=== PATIENT | male | born 1980 | race Caucasian/White ===

== ENCOUNTER 2019-03-11 10:44 | Emergency (ER) | payer OTHER, BC, SELFPAY ==
[2019-03-11 10:48] VITALS: BP 165/89; PULSE 110; RESP 16; TEMP 36.6; O2SAT 97; BMI 28.2
--- NOTE | 2019-03-11 11:50 | ED.DCSUM_ITS ---
History of Present Illness Chief Complaint: Back Onset: Today Current Severity: Moderate Maximum Severity: Moderate Narrative: Patient has chronic recurrent back pain. He presents today with back pain after bending over. He does have some radiation into his buttocks. He is virtually pain-free when he stands up however as soon as he starts to move he is in what he calls excruciating pain. He denies any bowel or bladder compromise, he has no radiation to his feet. Past Medical History - Allergies and Home Meds Allergies/Adverse Reactions: Allergies No Known Allergies Allergy (Verified 03/11/19 10:50) Primary Care Physician: Care Physician,No Primary [Primary Care Provider] - Past Medical History: None Surgical History: no surgical history Smoking Status: Former smoker Review of Systems All systems negative except as indicated General: Denies: Fever Cardiovascular: Denies: Chest pain Respiratory: Denies: Dyspnea Gastrointestinal: Denies: Abdominal pain, Nausea Musculoskeletal: Reports: Myalgias, Back pain Skin: Denies: Rash, Wounds Neurological: Denies: Headache, Weakness, Numbness Physical Exam Vital Signs/Narrative: Vital Signs Temp Pulse Resp BP Pulse Ox 03/11/19 10:48 97.8 F 110 H 16 165/89 H 97 General: Well nourished, Well developed Cardiovascular: Regular rate, Regular rhythm Respiratory: No distress, CTA bilaterally Abdomen: Soft, Nontender, No masses Back: - - There is midline and paraspinal tenderness in the lumbar spine region Neurological: - - Patient has normal strength sensation. He has no neurological compromise. Diagnostic/Tx/Re-eval - Medical Decision Making Patient has a lumbar strain however I did tell him that there is a possibility of a disc herniation. Regardless at this time he has no signs or symptoms of cauda equina. I will treat him symptomatically. He will need to follow-up with [facility]. If he worsens, if he has bowel or bladder compromise, if he has paresthesias or weakness he needs to return right away he understands this. ED Disposition - Plan for ED Patient: Disposition: Home or Assisted Living Instructions: BACK PAIN (Acute or Chronic) Prescriptions: Naproxen [Naprosyn] 500 mg PO BID PRN #20 tab Prescription Printed Hydrocodone Bitart/Apap 5-325 [[place] 5MG-325MG] 1 tab PO Q4H PRN PRN 2 Days #10 tab PRN Reason: Pain Prescription Printed Tizanidine HCl 4 mg PO TID #20 tab Prescription Printed Referrals: [facility] [GROUP OF PHYSICIANS] -
[2019-03-11] MEDS: Orphenadrine 60 MG/2 ML Ampul IM (12:37)
[2019-03-11] MEDS: HYDROmorphone 1 MG/ML Syringe IM (13:18)
[2019-03-11 13:48] VITALS: PULSE 89; RESP 16; O2SAT 97
== END 2019-03-11 13:50 | disposition home or self-care (01) ==
PROVIDERS: Emergency Provider Emergency Medicine
DX: S39.012A Strain of muscle, fascia and tendon of lower back, initial encounter (principal); X50.1XXA Overexertion from prolonged static or awkward postures, initial encounter; Y93.89 Activity, other specified; Y92.9 Unspecified place or not applicable; Y99.0 Civilian activity done for income or pay; Z87.891 Personal history of nicotine dependence
CPT/HCPCS: 96372; 99282

== ENCOUNTER → 2019-03-12 12:10 | Outpatient (CLI) | payer OTHER, SELFPAY ==
[2019-03-12 11:50] VITALS: BMI 28.2
--- NOTE | 2019-03-12 12:12 | RAD_ITS ---
STUDY: X-RAY - LUMBAR SPINE REASON FOR EXAM: Male, 39 years old. Severe back pain after bending over at work. TECHNIQUE: 4 view(s) of the lumbar spine were obtained. COMPARISON: None FINDINGS: Normal lumbar lordosis. There is no substantial scoliosis. There is a normal alignment of the vertebrae. Small osteophytes at L2-3 and L3-4. Mild intervertebral disc space narrowing at L4-5 Minimal diffuse facet sclerosis. The soft tissue structures are unremarkable. RAD/L/S Spine Min 4 Views IMPRESSION: Minimal lumbar spondylosis. No acute finding. Electronically Signed: Hever Pollock MD at 12:56 EDT , Service support ,
== END ==
PROVIDERS: Referring Provider Physician Assistant; Visit Provider Physician Assistant
DX: S39.92XA Unspecified injury of lower back, initial encounter (principal)
CPT/HCPCS: 72110

== ENCOUNTER 2019-04-28 15:30 | Outpatient (RCR) | payer OTHER, SELFPAY ==
[2019-03-20 15:36] VITALS: BMI 28.2
--- NOTE | 2019-04-02 12:54 | HP.PTEVAL ---
Patient's Visit Information HOLLEY MILLIGAN is a 39 year old M referred to Physical Therapy by ADITYA Hernandez with a diagnosis of STRAINOF MUSCLE ,FASCIA AND TENDON OF LOW BACK. Date of Evaluation: 04/01/19 Physical Therapist: Michael Santiago, PT, Cert MDT, OCS - Visit Plan Frequency: 3x /Week Duration: 4 Weeks Plan: PT INTERVENTION SUSIE EX'S CORRECT SHIFT DEFORMITY,PROGRESS TO DLS,POSTURAL EX'S,AND MODLATIES NEEDED - Subjective Findings: This 39 y/o male presents to physical therapy with low back pain. Patient injuried lumbar pain about 3 weeks at work bend down to lift a piece of metal from floor. Patient had immediate pain right side . Pateint went ER injection proved predisone, muscle relaxer ,and naproxan, Patient followed [facility] did x-rays -. Recommended PT. Location right side . Aggravating factors lifting otherwise feels weak.Alleviating factors MEDS. Patient sleeping good at night. Denies parathesia/tingling. Coughing/sneezing -. Toño//bladder - Patient pain affects ability to perform ADLS' and job demands . Patient working light duty 25# restriction. Patient ability affects RTW and QOL. SOCIAL: . HOBBIES : Baseball. VCATION: [employer] - Objective POSTURE: mild foward posture,left lateral shift deformity. GAIT: reciprocal pattern. NEURO: reflexes L3-4,L4-L5,L5-S1 2/3 ,mytomes. SYMMTRIES: left lateral shift deformity. MMT: quads/hams 4/5,hip flxion 4/5,ankle 5/5. FLEXABLITY: hamstrings min. LUMBAR ROM:flexion min loss,extesnion mod loss,side glides min loss - Special Tests L/S Slump test left side: Negative L/S Slump test right side: Positive L/S Left Straight Leg Raise: Negative L/S Right Straight Leg Raise: Negative Lumbar Standing: Flexion - Mechanical Response: No effect Lumbar Standing: Flexion - Symptoms During Testing: Increases Lumbar Standing: Flexion - Symptoms After Testing: No worse Lumbar Standing: Extension - Mechanical Response: No effect Lumbar Standing: Extension - Symptoms During Testing: Increases Lumbar Standing: Extension - Symptoms After Testing: No worse Lumbar Standing: Right Side Glides - Mechanical Response: No effect Lumbar Standing: Right Side [place] - Symptoms During Testing: No effect Lumbar Standing: Right Side [place] - Symptoms After Testing: No effect Lumbar Standing: Left Side [place] - Mechanical Response: No effect Lumbar Standing: Left Side [place] - Symptoms During Testing: No effect Lumbar Standing: Left Side [place] - Symptoms After Testing: No effect Lumbar Lying: Flexion - Mechanical Response: No effect Lumbar Lying: Flexion - Symptoms During Testing: Increases Lumbar Lying: Flexion - Symptoms After Testing: No worse Lumbar Lying: Extension - Mechanical Response: No effect Lumbar Lying: Extension - Symptoms During Testing: Decreases Lumbar Lying: Extension - Symptoms After Testing: Centralized - Goals Goal 1:: Independant with HEP. Goal Time Frame: 4-6 Weeks Goal 2:: Independant with posture/body mechanics Goal Time Frame: 4-6 Weeks Goal 3:: Patient to decrease lumbar pain by 80 % or > to improve function and RTW. Goal Time Frame: 4-6 Weeks Goal 4:: Patient to improve lumbar ROM for function of recovery Goal Time Frame: 4-6 Weeks Goal 5:: Patient to improve back owestry score by 5 points or > to improve QOL and job Goal Time Frame: 4-6 Weeks Goal 6:: Patient to be d/c to prophalaxis with correction of shift deformity Goal Time Frame: 4-6 Weeks - Rehabilitation Potential Physical Therapy Diagnosis: This patient has derrangement with left lateral shift deformity with decrease ROM ,pain ,weakness inable to return to function of recovery and job demands thus beifit from skilled PT. Rehabilitation Potential: Good - Anticipated Interventions Patient/Client Instruction: Educate patient on: Condition, Plan of Care For the Purpose of:: To decrease pain, To increase ROM, To improve muscle performance and motor function, To increase tolerance to activity/condition/position, To improve ability of physical actions for home/community/work/leisure, To improve health of tissue, To decrease soft tissue restriction, To increase flexibility/ROM, To reduce risk of recurrence, To improve ability to perform tasks related to life management Therapeutic Exercise to Include: Strength training, Postural training, Flexibilty training, Active ROM, Dynamic Lumbar Stabilization, Susie Exercises For the Purpose of:: To decrease pain, To increase ROM, To improve muscle performance and motor function, To improve ability to perform ADL's, To increase tolerance to activity/condition/position, To improve ability of physical actions for home/community/work/leisure, To improve health of tissue, To decrease soft tissue restriction, To increase flexibility/ROM, To improve ability to perform tasks related to life management Manual Therapy Techniques to Include: Mobilization Comment: LUMBAR For the Purpose of:: To decrease pain, To increase ROM TENS: Yes IF ES: Yes Cryotherapy (ice pack, ice massage): Yes Thermo therapy (hot pack): Yes Ultrasound (thermal/non thermal): Yes For the Purpose of:: To decrease pain, To increase ROM, To improve nutrient delivery to tissue, To increase oxygenation perfusion, To improve health of tissue, To decrease soft tissue restriction Thank you for the opportunity to evaluate your patient. For Medicare and Medicare HMO plans, please review the plan of care and approve it. It will need to be FAXED BACK to us at [phone] for Medicare purposes. For Medicare only, by signing this I certify the plan of care. Please let me know if there are questions or concerns regarding this plan of care. Physician Signature: Date:
--- NOTE | 2019-08-01 10:48 | HP.PT.NRP ---
HOLLEY MILLIGAN was seen in my office for initial evaluation on 04/01/19. The following Plan of Care was established for this patient: Initial Frequency: 3x /Week Initial Duration: 4 Weeks Patient/Client Instruction: Educate patient on: Condition, Plan of Care For the Purpose of:: To decrease pain, To increase ROM, To improve muscle performance and motor function, To increase tolerance to activity/condition/position, To improve ability of physical actions for home/community/work/leisure, To improve health of tissue, To decrease soft tissue restriction, To increase flexibility/ROM, To reduce risk of recurrence, To improve ability to perform tasks related to life management Therapeutic Exercise to Include: Strength training, Postural training, Flexibilty training, Active ROM, Dynamic Lumbar Stabilization, [place] Exercises For the Purpose of:: To decrease pain, To increase ROM, To improve muscle performance and motor function, To improve ability to perform ADL's, To increase tolerance to activity/condition/position, To improve ability of physical actions for home/community/work/leisure, To improve health of tissue, To decrease soft tissue restriction, To increase flexibility/ROM, To improve ability to perform tasks related to life management Manual Therapy Techniques to Include: Mobilization Comment: LUMBAR For the Purpose of:: To decrease pain, To increase ROM TENS: Yes IF ES: Yes Cryotherapy (ice pack, ice massage): Yes Thermo therapy (hot pack): Yes Ultrasound (thermal/non thermal): Yes For the Purpose of:: To decrease pain, To increase ROM, To improve nutrient delivery to tissue, To increase oxygenation perfusion, To improve health of tissue, To decrease soft tissue restriction This patient was last seen in our office 04/28/19. Pertinent comments regarding their Physical therapy will appear below: Patient seen for PT for DLS abd/back abd/back ,postural ex's and strengthening for low back pain. Thus patient is d/c. At this point I will be discontinuing this patient from physical therapy. I would be happy to see this patient again in the future if found appropriate by the physician. Thank you! Michael Santiago, PT, Cert MDT, OCS
== END 2019-04-28 19:00 | disposition home or self-care (01) ==
LOC: PT 15:30
PROVIDERS: Referring Provider Physician Assistant; Visit Provider Physician Assistant
DX: S39.012D Strain of muscle, fascia and tendon of lower back, subsequent encounter (principal)
CPT/HCPCS: 97110; 97162; 97530